=== PATIENT | male | born 1970 | race Caucasian/White ===

== ENCOUNTER 2018-09-12 19:50 | Emergency (ER) | payer OTHER ==
[~2018-09-12] VITALS: Ht 177.8 cm; Wt 87.3 kg
[2018-09-12] MEDS ORDERED: EXCETAB80 PO (19:59)
[2018-09-12] MEDS ORDERED: diphenhydrAMINE INJ 50MG/ML VIAL (J1200) IV ONE (21:00)
[2018-09-12] MEDS ORDERED: METOCLOPRAMIDE INJ 10MG/2ML VIAL (J2765) IV ONE (21:00)
[2018-09-12] MEDS ORDERED: KETOROLAC 30 MG/ML VIAL (J1885) IV ONE (21:00)
[2018-09-12] MEDS ORDERED: methylPREDNISolone INJ 125 MG/2 ML VIAL (J2930) IV ONE (22:15)
[2018-09-12] MEDS ORDERED: ISOVUE-370 76% 100ML VIAL (Q9967) As Ordered ONE (22:54)
--- NOTE | 2018-09-12 23:35 | REPVR ---
EXAM: CT Head Without and With Contrast EXAM DATE/TIME: 09/12/2018 10:07 PM CLINICAL HISTORY: 48 years old, male; Pain; Headache; Headache not specified; Additional info: Worsening BELLAMY, last CT 20yrs, fam HX anuerysm TECHNIQUE: Axial computed tomography images of the head/brain without and with intravenous contrast. All CT scans at this facility use at least one of these dose optimization techniques: automated exposure control; mA and/or kV adjustment per patient size (includes targeted exams where dose is matched to clinical indication); or iterative reconstruction. CONTRAST: 75 ml of iso administered intravenously. COMPARISON: No relevant prior studies available. FINDINGS: Brain: Normal. No hemorrhage. No significant white matter disease. No edema. No vascular abnormalities. Ventricles: Normal. No ventriculomegaly. Bones/joints: Normal. No acute fracture. Sinuses: Normal as visualized. No acute sinusitis. Mastoid air cells: Normal as visualized. No mastoid effusion. Soft tissues: Normal. IMPRESSION: No acute intracranial abnormality. Electronically signed by: Jaquan Posada On 09/12/2018 23:34:36 PM
[2018-09-13 00:27] VITALS: BP 131/93
== END 2018-09-13 00:31 | disposition home or self-care (01) ==
LOC: M ED 19:50
DX: G43.119 Migraine with aura, intractable, without status migrainosus (principal); Z88.8 Allergy status to other drugs, medicaments and biological substances; Z82.49 Family history of ischemic heart disease and other diseases of the circulatory system
CPT/HCPCS: 70470; 85652; 96374; 96375; 99284; J1200; J1885; J2765; J2930; Q9967